=== PATIENT | female | born 1970 | race Caucasian/White ===

== ENCOUNTER → 2019-01-22 | Outpatient (CLI) | payer MEDICAID ==
--- NOTE | 2019-01-23 15:09 | MM ---
Reason for exam: screening (asymptomatic). Last mammogram was performed 2 years and 10 months ago. History: Patient had first child at age 39. Physical Findings: A clinical breast exam by your physician is recommended on an annual basis and results should be correlated with mammographic findings. MG 3D Screening Mammo W/Cad Bilateral CC and MLO view(s) were taken. Prior study comparison: March 16, 2016, bilateral MG 3d screening mammo w/cad. The breast tissue is heterogeneously dense. This may lower the sensitivity of mammography. No suspicious abnormality. No significant changes when compared with prior studies. ASSESSMENT: Negative, BI-RAD 1 RECOMMENDATION: Routine screening mammogram of both breasts in 1 year.
== END | disposition home or self-care (01) ==
LOC: RADMAMWWP 08:16
PROVIDERS: ATTEND Obstetrics & Gynecology
DX: Z12.31 Encounter for screening mammogram for malignant neoplasm of breast (principal)
CPT/HCPCS: 77063; 77067

== ENCOUNTER → 2020-09-18 | Outpatient (CLI) | payer MEDICAID | END | disposition home or self-care (01) | CPT/HCPCS: 36415; 80051; 82565; 82947; 84520; 85025; 86850; 86900; 86901; 87086; 93005 ==

== ENCOUNTER 2020-09-29 06:01 | Day surgery (SDC) | payer MEDICAID ==
[2020-09-28 08:40] VITALS: BMI 40.5
[~2020-09-29 06:01] MED LIST: DEXAMETHASONE SOD PHOSPHATE 4 MG/ML 1 ML VIAL IV ONE; LIDOCAINE 1% (10MG/ML) FOR IV START INTRADERMA PRN; ONDANSETRON 4 MG/2 ML VIAL IVP ONE; SCOPOLAMINE 1.5MG/72HR PATCH TRANSDERM ONE
[2020-09-29] MEDS: LACTATED RINGERS 1,000 ML IV SCH ×4 (06:49→21:35)
[2020-09-29] MEDS ORDERED: HYDROmorphone 0.5 MG/0.5 ML SYRINGE IVP PRN (07:00)
[2020-09-29] MEDS ORDERED: MIDAZOLAM 2 MG/2 ML VIAL IVP ONE (07:27)
[2020-09-29] MEDS ORDERED: fentaNYL (PF) 50 MCG/ML 2 ML AMP IVP ONE (07:27)
[2020-09-29] MEDS ORDERED: SUCCINYLCHOLINE CHLORIDE 100 MG/5 ML SYR IV ONE (07:39)
[2020-09-29] MEDS ORDERED: ROCURONIUM 10 MG/ML (5 ML VIAL) IV ONE (07:39)
[2020-09-29] MEDS ORDERED: SODIUM CHLORIDE 0.9% (PF) 10 ML VIAL ONE (07:39)
[2020-09-29] MEDS ORDERED: MIDAZOLAM 2 MG/2 ML VIAL ONE (07:39)
[2020-09-29] MEDS ORDERED: PROPOFOL 10 MG/ML 20 ML VIAL IV ONE (07:39)
[2020-09-29] MEDS ORDERED: HYDROmorphone (PF) 1 MG/ML ONE (07:39)
[2020-09-29] MEDS ORDERED: LIDOCAINE 1% INJ 10MG/ML (20 ML MDV) ONE (07:39)
[2020-09-29] MEDS ORDERED: ROPIVACAINE 5 MG/ML 30 ML VIAL ONE (07:39)
[2020-09-29] MEDS ORDERED: NEOSTIGMINE 1 MG/ML 10 ML VIAL ONE (07:39)
[2020-09-29] MEDS ORDERED: GLYCOPYRROLATE 0.2 MG/ML 2 ML VIAL ONE (07:39)
[2020-09-29] MEDS ORDERED: BUPIVACAINE (PF) 0.25% 30 ML VIAL SQ ONE ×2 (08:08→09:35)
--- NOTE | 2020-09-29 08:28 | P.ANPRN ---
Procedure Note - Anesthesia - Nerve Block Performed Bilateral Erector Spinae Single Time Out Performed: Yes ([id number]) Date of Procedure: 09/29/20 Procedure Start Time: : Procedure Stop Time: :32 Location of Patient: PreOp Indication: Acute Post-Operative Pain, Requested by Surgeon Specifically requested for management of pain by DrJohn: Addy Martínez Sedation Type: Sedate with meaningful contact maintained Preparation: Sterile Prep Position: Supine Catheter: None Needle Types: Pajunk Needle Gauge: 21 Ultrasound used to visualize needle placement: Yes Ultrasound used to observe medication spread: Yes Injectate: 0.5% Ropivacaine (see comment for volume) (15cc each side + NACL PF 5cc each side) Blood Aspirated: No Pain Paresthesia on Injection Noted: No Resistance on Injection: Normal Image Stored and Saved: Yes Events: Uneventful and Well Tolerated
[2020-09-29] MEDS ORDERED: LACTATED RINGERS 1,000 ML IV ONE (08:41)
[2020-09-29] MEDS ORDERED: ONDANSETRON 4 MG/2 ML VIAL IVP PRN (09:49)
[2020-09-29] MEDS ORDERED: METOCLOPRAMIDE 5 MG/ML 2 ML VIAL IVP PRN (09:49)
[2020-09-29] MEDS ORDERED: Acetaminophen-Codeine 300-30mg TAB PO PRN ×2 (09:49)
[2020-09-29] MEDS ORDERED: SIMETHICONE 80 MG CHEWABLE PO PRN (09:49)
[2020-09-29] MEDS ORDERED: diphenhydrAMINE 50 MG/ML 1 ML VIAL IVP PRN (09:49)
[2020-09-29] MEDS ORDERED: KETOROLAC 15 MG/ML 1 ML VIAL IVP PRN (09:49)
--- NOTE | 2020-09-29 10:04 | P.OP ---
Date of Procedure: 09/29/20 Preoperative Diagnosis: #1. Menometrorrhagia #2. Dysmenorrhea #3. Failed endometrial ablation Postoperative Diagnosis: Same Procedure(s) Performed: #1. Da Sudha robotically assisted vaginal hysterectomy with bilateral salpingectomy #2. Diagnostic cystoscopy Anesthesia: SWAPNA Surgeon: Addy Martínez Zigzag Stitcher #1: Marilynn Mchugh Estimated Blood Loss (ml): 50 IV fluids (ml): 1,500 Urine output (ml): 200 Pathology: other (Uterus and bilateral fallopian tubes) Condition: stable Disposition: PACU Operative Findings: Preoperative pelvic examination demonstrated a roughly 7-8 week midplane normal shaped uterus. Intraoperatively, these findings were concerned with the uterus that appeared to be likely adenomyotic. There was evidence of bilateral tubal occlusion with one Filshie clip remaining in place on the right side for the left Filshie clip had, had some time, released in a closed manner and was found peritonealized on the bladder. It was left in place rather than chance damaging the bladder. There was no other apparent pathology present in the pelvis. Following the procedure, the cystoscopic findings were of a normal bladder and specifically bladder dome with bilateral ureteral peristalsis noted. Description of Procedure: The patient was prepped and draped in usual fashion after general endotracheal anesthesia was administered by the anesthesiologist. A weighted speculum was placed and the interior of the cervix grasped with single-tooth tenaculum. The uterus was sounded to approximately 10 cm. Serial dilation was carried out to admit the are uterine manipulator with a medium cervical cup which was affixed to the cervix and uterus in standard fashion. A Berry catheter was then placed. Attention was then turned to the abdomen where a site was selected approximate 4 cm above the umbilicus in the midline where an 8 mm incision was made in the transverse plane allowing insertion of an 8 mm da Sudha optical port under direct visualization without difficulty. A pneumoperitoneum was then insufflated and Trendelenburg positioning utilized. A site was selected approximately 10-12 cm lateral and 4-5 cm inferior the optical port on the right side where another 8 mm incision was made in the transverse plane allowing insertion of an 8 mm da Sudha port under direct visualization. A matching port was placed in the left lower quadrant. The area between the left lower quadrant port and the optical port was bisected and a 10 mm incision made in the transverse plane approximately 4-57 m above the optical port allowing insertion of a 10 mm patient clerical assistant port without difficulty again under direct visualization. The robot was then docked to the patient and the left arm loaded with a [place] bipolar cautery forceps and the right arm loaded with a monopolar cautery scissors. I then attended to the console. The left fallopian tube was removed from the underlying ovary with cautery followed by monopolar cautery with the scissors. At the level of the uterus the utero-ovarian ligament was transected up and through the round ligament on the left side using [place] bipolar cautery forceps followed by the sharp scissors with cautery as well. The bladder peritoneum was developed across the cervix and midline and the underlying tissues dissected to some extent. The uterine vasculature was skeletonized and then cauterized using the [place] poor cautery forceps. Attention was then turned to the right side where similar operations were carried out again without difficulty. The bladder peritoneum was developed across to the pre-existing incision. The bladder. Was elevated and sharply incised down to the fascial layer. A Ray-Adan was introduced and utilized to sweep the bladder further distally and expose the vaginal cup clearly. The uterine vascular trocar the right side was then more thoroughly cauterized and then divided. The left side was reexamined and recauterized as well. The posterior vaginal cup was taken the obvious with the uterus anteverted and the vagina packed with a sponge allowing the vaginal cuff to be opened posteriorly. The cup was then followed around from the right side to the left side and slightly anteriorly. The uterus was then retroverted and the vaginal incision connected across the top and the right. With some manipulation, the fairly large uterus was delivered through the vagina. The monopolar cautery scissors were exchanged for a laparoscopic suturing device. The previously placed Ray- Adan had been removed and a stitch of 0 Stratafix suture was passed into the abdomen. The vaginal cuff was closed beginning at the right angle of the vagina with large bites through the entirety of the vaginal cuff. It was closed from right to left and then several stitches taken back the other direction to ensure complete closure. The remaining stitch was then cut and removed without difficulty. Thorough suction irrigation was then carried out and it appeared to be somewhat dry. Surgicel powder was then utilized to coat the surgical areas. I then returned to the patient and remove the Berry catheter allowing placement of a diagnostic cystoscope. The bladder was filled with sterile water and the dome examined and found to be undamaged from either the cystoscopic or laparoscopic aspect. Both ureteral orifices were then examined and found to be peristalsing. All instrumentation was then removed, the robot undocked, and the ports removed. The incisions were closed with interrupted subcuticular stitches of 4-0 Vicryl followed by half-inch Steri-Strips placed with Mastisol. The incisions were infused with a total of 10 mL of quarter percent Marcaine without epinephrine equally divided among the 4 ports. Estimated blood loss for the case was approximately 50 mL. There were no complications. All sponge, instrument, and needle counts were correct. The patient tolerated the procedure well and proceeded to the recovery room in stable condition.
[2020-09-29] MEDS: IBUPROFEN 600 MG TAB PO PRN (14:56)
[2020-09-29] MEDS: SENNOSIDES-DOCUSATE SODIUM 1 EACH TAB PO SCH (21:35)
[2020-09-30] MEDS: LACTATED RINGERS 1,000 ML IV SCH (05:36)
[2020-09-30 06:54] LABS: Basophils % (A) 0 %; Eosinophils % (A) 0 %; HCT 24.7 % (34.0-46.0); HGB 7.6 gm/dL (11.4-16.0); Hypochromasia Marked; Lymphocytes # (A) 2.4 k/uL (1.0-4.8); Lymphocytes % (A) 20 %; MCH 23.4 pg (25.0-35.0); MCHC 30.8 g/dL (31.0-37.0); Mean Platelet Volume 8.1; Microcytosis Slight; Monocytes # (A) 0.5 k/uL (0-1.0); Monocytes % (A) 4 %; Neutrophils # (A) 8.9 k/uL (1.3-7.7); Neutrophils % (A) 73 %; Platelet Count 354 k/uL (150-450); RBC 3.25 m/uL (3.80-5.40); RDW 15.7 % (11.5-15.5); WBC 12.1 k/uL (3.8-10.6)
[2020-09-30 08:35] VITALS: BP 146/75; PULSE 76; RESP 16; TEMP 98.2
[2020-09-30] MEDS: IBUPROFEN 600 MG TAB PO PRN (08:58)
[2020-09-30] MEDS: SENNOSIDES-DOCUSATE SODIUM 1 EACH TAB PO SCH (08:58)
--- NOTE | 2020-09-30 09:06 | P.DS ---
Providers Expected date of discharge: 09/30/20 Attending physician: Addy Martínez Primary care physician: Bang Cheney MD - Discharge Diagnosis(es) (1) Dysmenorrhea Current Visit: Yes Status: Acute (2) Menometrorrhagia Current Visit: Yes Status: Acute Hospital Course: The patient is a 50-year-old woman who has a fairly long-standing history of significant irregular and heavy bleeding, menometrorrhagia. She underwent endometrial ablation in 2013 for these diagnoses which has failed to improve the problem. She additionally failed several attempts with oral contraceptive pills and has now requested definitive therapy with hysterectomy. Her uterus is somewhat enlarged and there is minimal descensus. As a result, she was taken the operating room where she underwent da Sudha robotically-assisted vaginal hysterectomy with bilateral salpingectomy and diagnostic cystoscopy in uncomplicated fashion. Her postoperative course has been unremarkable with vital signs remaining stable and her temperature has been afebrile throughout. She is tolerating regular diet on the morning of postoperative day #1 and has been able to be up and ambulatory without difficulty. She is voiding without difficulty as well. As a result, she has been deemed stable for discharge on postoperative day #1 will be discharged home to follow-up in the office in 2 weeks for an incision check and 8 weeks routinely. Discharge instructions primarily included calling for any significantly increasing increasing vaginal bleeding, pain, incisional problems, GI concerns, fever, or anything else that concerned her. She was primarily though instructed to have nothing in vagina for at least 8 weeks time to include intercourse. She understood all of her instructions and agrees to follow up as noted above. Discharge medications included any home medications plus a prescription for Tylenol No. 3, 1-2 by mouth every 6 hours when necessary pain, #20 dispensed with no refills. Discharge hemoglobin and hematocrit were 7.6 and 24.7 respectively. The patient demonstrates no signs or symptoms of orthostasis or ongoing bleeding. Urine output has been excellent. Procedures: #1. Da Sudha robotically assisted vaginal hysterectomy with bilateral salpingectomy #2. Diagnostic cystoscopy Patient Condition at Discharge: Stable Plan - Discharge Summary Discharge Rx Participant: Yes New Discharge Prescriptions: No Action hydroCHLOROthiazide 25 mg PO DAILY Acetaminophen Tab [Tylenol] 325 mg PO DIRECTED PRN PRN Reason: Pain Discharge Medication List Acetaminophen Tab [Tylenol] 325 mg PO DIRECTED PRN 09/28/20 [History] hydroCHLOROthiazide 25 mg PO DAILY 09/28/20 [History] Follow up Appointment(s)/Referral(s): Addy Martínez MD [STAFF PHYSICIAN] - 2 Weeks Patient Instructions/Handouts: *Surgery [facility] - Scopalamine Patch Instructions Discharge Disposition: HOME SELF-CARE
[2020-09-30] MEDS ORDERED: ACETAMINOPHEN TAB 325 MG TAB PO PRN (09:50)
== END 2020-09-30 10:58 | disposition home or self-care (01) ==
LOC: OR 06:01 → 4FBP 09:45 → OR 09-30 10:58
PROVIDERS: ATTEND Obstetrics & Gynecology
DX: N92.1 Excessive and frequent menstruation with irregular cycle (principal); N94.6 Dysmenorrhea, unspecified; I10 Essential (primary) hypertension; Z79.899 Other long term (current) drug therapy
CPT/HCPCS: 58573; S2900; 84703; 85025; 86850; 86900; 86901; 88307

== ENCOUNTER → 2021-12-03 | Outpatient (CLI) | payer MEDICAID ==
[2021-12-03 11:16] LABS: Basophils # (A) 0.04 X 10*3/uL (0.00-0.10); Basophils % (A) 0.6 %; Eosinophils # (A) 0.21 X 10*3/uL (0.04-0.35); Eosinophils % (A) 3.1 %; HCT 40.4 % (37.2-46.3); Immature Grans, Automated 0.1 %; Lymphocytes # (A) 1.46 X 10*3/uL (0.90-5.00); Lymphocytes % (A) 21.8 %; MCH 29.9 pg (27.0-32.0); MCHC 32.2 g/dL (32.0-37.0); MCV 92.9 fL (80.0-97.0); Mean Platelet Volume 11.7 fL (9.5-12.2); Monocytes # (A) 0.43 X 10*3/uL (0.20-1.00); Monocytes % (A) 6.4 %; NRBC Per 100 WBC 0 /100 WBCS (0.0-0.0); Neutrophils # (A) 4.56 X 10*3/uL (1.80-7.70); Platelet Count 256 X 10*3/uL (140-440); RBC 4.35 X 10*6/uL (4.10-5.20); RDW 12.3 % (11.5-14.5); WBC 6.71 X 10*3/uL (4.50-10.00)
[2021-12-03 12:09] LABS: ALT 28 U/L (8-44); AST 25 U/L (13-35); Albumin 4.1 g/dL (3.8-4.9); Albumin/Globulin Ratio 1.28 (1.60-3.17); Alkaline Phosphatase 98 U/L (41-126); BUN/Creat Ratio 25.17 Ratio (12.00-20.00); Blood Urea Nitrogen 15.1 mg/dL (9.0-27.0); Calcium 9.3 mg/dL (8.7-10.3); Carbon Dioxide 26.2 mmol/L (20.0-27.5); Chloride 103 mmol/L (96-109); Globulin 3.2 g/dL (1.6-3.3); Glucose 98 mg/dL (70-110); Iron 94 ug/dL (50-170); LDL Cholesterol,Calculated 142.2 mg/dL (0.0-131.0); Potassium 4.4 mmol/L (3.5-5.5); Sodium 140 mmol/L (135-145); Total Protein 7.3 g/dL (6.2-8.2)
== END | disposition home or self-care (01) ==
LOC: LABWHC1 07:02
PROVIDERS: ATTEND Internal Medicine
DX: Z00.00 Encounter for general adult medical examination without abnormal findings (principal); D64.9 Anemia, unspecified
CPT/HCPCS: 36415; 80053; 80061; 82607; 82746; 83540; 84443; 85025

== ENCOUNTER → 2022-01-17 | Outpatient (CLI) | payer MEDICAID ==
--- NOTE | 2022-01-18 17:24 | MM ---
Reason for Exam: Screening (asymptomatic). Last mammogram was performed 2 year(s) and 11 month(s) ago. Patient History: Menarche at age 15. First Full-Term at age 39. Late child-bearing (after 30). Left ovary removed at age 50. Right ovary removed at age 50. Hysterectomy at age 50. Postmenopausal. Risk Values: Ana 5 year model risk: 1.3%. NCI Lifetime model risk: 12.3%. Prior Study Comparison: 03/16/2016 Bilateral Screening Mammogram, [facility]. 01/22/2019 Bilateral Screening Mammogram, [facility]. Tissue Density: There are scattered fibroglandular densities. Findings: Analyzed By CAD. Pattern appears stable. No suspicious groups of microcalcifications, spiculated or lobular masses, architectural distortion or other secondary signs of malignancy are mammographically apparent. Overall Assessment: Benign, BI-RAD 2 Management: Screening Mammogram of both breasts in 1 year. A negative mammogram report should not preclude additional follow up of suspicious palpable abnormalities. Patient should continue monthly self breast exam. A clinical breast exam by your physician is recommended on an annual basis and results should be correlated with mammographic findings. Electronically signed and approved by: Almas Soriano D.O. Radiologis
== END | disposition home or self-care (01) ==
LOC: RADMAMWWP 09:13
PROVIDERS: ATTEND Internal Medicine
DX: Z12.31 Encounter for screening mammogram for malignant neoplasm of breast (principal); Z78.0 Asymptomatic menopausal state; Z90.721 Acquired absence of ovaries, unilateral
CPT/HCPCS: 77063; 77067

== ENCOUNTER → 2022-06-10 | Outpatient (CLI) | payer MEDICAID ==
[2022-06-10 10:56] LABS: African American GFR (CKD) 123.2 (60.0-200.0); Anion Gap 9.9 mmol/L (10.00-18.00); Blood Urea Nitrogen 12.6 mg/dL (9.0-27.0); Calcium 9.4 mg/dL (8.7-10.3); Carbon Dioxide 26.1 mmol/L (20.0-27.5); Non-African American GFR(CKD) 106.3 (60.0-200.0); Potassium 4.5 mmol/L (3.5-5.5)
== END | disposition home or self-care (01) ==
LOC: LABWHC1 06:59
PROVIDERS: ATTEND Internal Medicine
DX: I10 Essential (primary) hypertension (principal)
CPT/HCPCS: 36415; 80048

== ENCOUNTER → 2022-10-19 | Outpatient (CLI) | payer MEDICAID ==
[2022-10-19 11:58] LABS: Basophils # (A) 0.04 X 10*3/uL (0.00-0.10); Basophils % (A) 0.5 %; Eosinophils # (A) 0.28 X 10*3/uL (0.04-0.35); Eosinophils % (A) 3.6 %; HCT 39.8 % (37.2-46.3); HGB 13.1 d/dL (12.0-15.0); Lymphocytes # (A) 1.64 X 10*3/uL (0.90-5.00); Lymphocytes % (A) 21.2 %; MCH 31.3 pg (27.0-32.0); MCHC 32.9 d/dL (32.0-37.0); MCV 95.2 FL (80.0-97.0); Mean Platelet Volume 11.3 FL (9.5-12.2); Monocytes # (A) 0.49 X 10*3/uL (0.20-1.00); Monocytes % (A) 6.3 %; NRBC Per 100 WBC 0 X 10*3/uL (0.00-0.01); Neutrophils # (A) 5.27 X 10*3/uL (1.80-7.70); Neutrophils % (A) 68.1 %; Platelet Count 268 X 10*3/uL (140-440); RBC 4.18 X 10*6/uL (4.10-5.20); RDW 12.2 % (11.5-14.5); WBC 7.74 X 10*3/uL (4.50-10.00)
[2022-10-19 12:26] LABS: ALT 30 U/L (8-44); AST 21 U/L (13-35); Albumin 4.3 d/dL (3.8-4.9); Albumin/Globulin Ratio 1.48 Ratio (1.60-3.17); Alkaline Phosphatase 96 U/L (41-126); Calcium 9.5 mg/dL (8.7-10.3); Carbon Dioxide 27.2 mmol/L (21.6-31.8); Chloride 102 mmol/L (96-109); Globulin 2.9 d/dL (1.6-3.3); Glucose 100 mg/dL (70-110); LDL Cholesterol,Calculated 141.3 mg/dL (0.0-131.0); Potassium 4.3 mmol/L (3.5-5.5); Sodium 138 mmol/L (135-145); Total Bilirubin 0.5 mg/dL (0.3-1.2); Total Protein 7.2 d/dL (6.2-8.2)
== END | disposition home or self-care (01) ==
LOC: LABWHC1 06:57
PROVIDERS: ATTEND Internal Medicine
DX: I10 Essential (primary) hypertension (principal); Z11.59 Encounter for screening for other viral diseases
CPT/HCPCS: 36415; 80053; 80061; 84443; 85025; 86803

== ENCOUNTER → 2023-02-10 | Outpatient (CLI) | payer MEDICAID ==
--- NOTE | 2023-02-10 08:51 | MM ---
Reason for Exam: Screening (asymptomatic). Last mammogram was performed 1 year(s) and 1 month(s) ago. Patient History: Menarche at age 15. First Full-Term at age 39. Late child-bearing (after 30). Left ovary removed at age 50. Right ovary removed at age 50. Hysterectomy at age 50. Postmenopausal. Risk Values: Ana 5 year model risk: 1.3%. NCI Lifetime model risk: 12.1%. Prior Study Comparison: 03/16/2016 Bilateral Screening Mammogram, [facility]. 01/22/2019 Bilateral Screening Mammogram, [facility]. 01/17/2022 Bilateral MG 3D screening mammo w/cad, [facility]. Tissue Density: There are scattered fibroglandular densities. Findings: Analyzed By CAD. There is no suspicious group of microcalcifications or new suspicious mass in either breast. Overall Assessment: Negative, BI-RAD 1 Management: Screening Mammogram of both breasts in 1 year. . Patient should continue monthly self-breast exams. A clinical breast exam by your physician is recommended on an annual basis. This exam should not preclude additional follow-up of suspicious palpable abnormalities. Note on Ana scores and lifetime risk: 1. A Ana score greater than 3% is considered moderate risk. If this is the case, consider specialist referral to assess eligibility for a risk reducing agent. 2. If overall lifetime risk for the development of breast cancer is 20% or higher, the patient may qualify for future screening with alternating mammogram and breast MRI. Electronically signed and approved by: Thiago Miranda M.D. Radiologis
== END | disposition home or self-care (01) ==
LOC: RADMAMWWP 06:46
PROVIDERS: ATTEND Internal Medicine
DX: Z12.31 Encounter for screening mammogram for malignant neoplasm of breast (principal); Z78.0 Asymptomatic menopausal state
CPT/HCPCS: 77063; 77067

== ENCOUNTER → 2023-05-11 | Outpatient (CLI) | payer MEDICAID ==
[2023-05-11 15:52] LABS: Basophils # (A) 0.04 X 10*3/uL (0.00-0.10); Basophils % (A) 0.5 %; Eosinophils # (A) 0.23 X 10*3/uL (0.04-0.35); Eosinophils % (A) 2.8 %; HCT 40.3 % (37.2-46.3); HGB 13.2 g/dL (12.0-15.0); Lymphocytes # (A) 1.79 X 10*3/uL (0.90-5.00); MCH 30.8 pg (27.0-32.0); MCHC 32.8 g/dL (32.0-37.0); MCV 94.2 FL (80.0-97.0); Mean Platelet Volume 11.9 FL (9.5-12.2); Monocytes # (A) 0.52 X 10*3/uL (0.20-1.00); Monocytes % (A) 6.4 %; NRBC Per 100 WBC 0 X 10*3/uL (0.00-0.01); Neutrophils # (A) 5.54 X 10*3/uL (1.80-7.70); Neutrophils % (A) 68.1 %; Platelet Count 307 X 10*3/uL (140-440); RBC 4.28 X 10*6/uL (4.10-5.20); RDW 12.6 % (11.5-14.5); WBC 8.14 X 10*3/uL (4.50-10.00)
[2023-05-11 16:53] LABS: ALT 39 U/L (8-44); AST 20 U/L (13-35); Albumin 4.3 g/dL (3.8-4.9); Alkaline Phosphatase 93 U/L (41-126); BUN/Creat Ratio 28.83 Ratio (12.00-20.00); Blood Urea Nitrogen 17.3 mg/dL (9.0-27.0); Calcium 9.4 mg/dL (8.7-10.3); Carbon Dioxide 27.4 mmol/L (21.6-31.8); Chloride 101 mmol/L (96-109); Chol/HDL Ratio 5.51 Ratio; Globulin 3.3 g/dL (1.6-3.3); Glucose 94 mg/dL (70-110); LDL Cholesterol,Calculated 142.6 mg/dL (0.0-131.0); Potassium 4.3 mmol/L (3.5-5.5); Sodium 138 mmol/L (135-145); Total Bilirubin 0.4 mg/dL (0.3-1.2); Total Protein 7.6 g/dL (6.2-8.2)
== END | disposition home or self-care (01) ==
LOC: LABWHC1 07:03
PROVIDERS: ATTEND Internal Medicine
DX: I10 Essential (primary) hypertension (principal)
CPT/HCPCS: 36415; 80053; 80061; 84443; 85025

== ENCOUNTER → 2024-05-16 | Outpatient (CLI) | payer MEDICAID ==
[2024-05-16 15:31] LABS: Basophils # (A) 0.03 X 10*3/uL (0.00-0.10); Basophils % (A) 0.4 %; Eosinophils # (A) 0.17 X 10*3/uL (0.04-0.35); Eosinophils % (A) 2.5 %; HCT 40.7 % (37.2-46.3); HGB 13.2 g/dL (12.0-15.0); Lymphocytes # (A) 1.67 X 10*3/uL (0.90-5.00); Lymphocytes % (A) 24.4 %; MCH 30.6 pg (27.0-32.0); MCHC 32.4 g/dL (32.0-37.0); MCV 94.4 FL (80.0-97.0); Mean Platelet Volume 11.8 FL (9.5-12.2); Monocytes # (A) 0.45 X 10*3/uL (0.20-1.00); Monocytes % (A) 6.6 %; NRBC Per 100 WBC 0 X 10*3/uL (0.00-0.01); Neutrophils % (A) 65.7 %; Platelet Count 270 X 10*3/uL (140-440); RBC 4.31 X 10*6/uL (4.10-5.20); RDW 12.5 % (11.5-14.5); WBC 6.85 X 10*3/uL (4.50-10.00)
[2024-05-16 15:42] LABS: % Iron Saturation 45.08 (12.00-45.00); ALT 36 U/L (8-44); AST 20 U/L (13-35); Albumin 4.2 g/dL (3.8-4.9); Albumin/Globulin Ratio 1.27 Ratio (1.60-3.17); Alkaline Phosphatase 86 U/L (41-126); Blood Urea Nitrogen 15.6 mg/dL (9.0-27.0); Calcium 9.3 mg/dL (8.7-10.3); Carbon Dioxide 27.3 mmol/L (21.6-31.8); Chloride 103 mmol/L (96-109); Chol/HDL Ratio 5.53 Ratio; Globulin 3.3 g/dL (1.6-3.3); Glucose 104 mg/dL (70-110); Iron 133 UG/DL (50-170); LDL Cholesterol,Calculated 154.8 mg/dL (0.0-131.0); Potassium 4.5 mmol/L (3.5-5.5); Sodium 139 mmol/L (135-145); Total Bilirubin 0.5 mg/dL (0.3-1.2); Total Iron Binding Capacity 295 UG/DL (228-460); Total Protein 7.5 g/dL (6.2-8.2); Uric Acid 5.7 mg/dL (2.9-7.7)
== END | disposition home or self-care (01) ==
LOC: LABWHC1 07:37
PROVIDERS: ATTEND Internal Medicine
DX: Z00.00 Encounter for general adult medical examination without abnormal findings (principal); M17.10 Unilateral primary osteoarthritis, unspecified knee; D64.9 Anemia, unspecified
CPT/HCPCS: 36415; 80053; 80061; 82607; 82728; 82746; 83540; 83550; 84443; 84550; 85025

== ENCOUNTER → 2024-05-16 | Outpatient (CLI) | payer MEDICAID ==
--- NOTE | 2024-05-16 07:45 | MM ---
Reason for Exam: Screening (asymptomatic). Last mammogram was performed 1 year(s) and 3 month(s) ago. Patient History: Menarche at age 15. First Full-Term at age 39. Late child-bearing (after 30). Left ovary removed at age 50. Right ovary removed at age 50. Hysterectomy at age 50. Postmenopausal. Risk Values: Ana 5 year model risk: 1.5%. NCI Lifetime model risk: 11.8%. Prior Study Comparison: 01/22/2019 Bilateral Screening Mammogram, [facility]. 01/17/2022 Bilateral MG 3D screening mammo w/cad, [facility]. 02/10/2023 Bilateral MG 3D screening mammo w/cad, [facility]. Tissue Density: There are scattered areas of fibroglandular density. Findings: Analyzed By CAD. Right breast: There is no suspicious group of microcalcifications or new suspicious mass. Left breast: There is no suspicious group of microcalcifications or new suspicious mass. Overall Assessment: Negative, BI-RAD 1 Management: Screening Mammogram of both breasts in [address] [facility] will attempt to contact patient to return for supplemental views and ultrasound if indicated. Patient should continue monthly self-breast exams. A clinical breast exam by your physician is recommended on an annual basis. This exam should not preclude additional follow-up of suspicious palpable abnormalities. Note on Ana scores and lifetime risk: 1. A Ana score greater than 3% is considered moderate risk. If this is the case, consider specialist referral to assess eligibility for a risk reducing agent. 2. If overall lifetime risk for the development of breast cancer is 20% or higher, the patient may qualify for future screening with alternating mammogram and breast MRI. [facility], , 05/16/2024 7:41 AM. Electronically signed and approved by: Freddie Nguyễn DO
== END | disposition home or self-care (01) ==
LOC: RADMAMWWP 07:07
PROVIDERS: ATTEND Internal Medicine
DX: Z12.31 Encounter for screening mammogram for malignant neoplasm of breast (principal); R92.323 Mammographic fibroglandular density, bilateral breasts; Z78.0 Asymptomatic menopausal state
CPT/HCPCS: 77063; 77067

== ENCOUNTER → 2024-09-10 | Outpatient (CLI) | payer MEDICAID | END | disposition home or self-care (01) | LOC: LABPAT 11:36 | PROVIDERS: ATTEND Orthopaedic Surgery | DX: Z01.812 Encounter for preprocedural laboratory examination (principal); M16.12 Unilateral primary osteoarthritis, left hip; Z22.322 Carrier or suspected carrier of Methicillin resistant Staphylococcus aureus | CPT/HCPCS: 87070 ==

== ENCOUNTER 2024-10-01 05:50 | Day surgery (SDC) | payer MEDICAID ==
--- NOTE | 2024-09-30 08:32 | P.HPOR ---
History of Present Illness H&P Date: 09/30/24 Chief Complaint: Left knee pain The patient is a 54-year-old female who presents with progressive left knee pain for the past several years. It has worsened after a recent slip and fall. She notes swelling and stiffness with any weightbearing activities. She has tried injections and oral steroids without much relief. She notes daily pain that limits her. Review of Systems Per HPI Past Medical History Past Medical History: Chest Pain / Angina, GERD/Reflux, Hypertension Additional Past Medical History / Comment(s): low back pain,anemia post hyst, gestational diabetes with one pregancy, History of Any Multi-Drug Resistant Organisms: None Reported Past Surgical History: Hysterectomy, Tubal Ligation Additional Past Anesthesia/Blood Transfusion Reaction / Comment(s): woke up during hysterectomy, Smoking Status: Never smoker - Past Family History Mother Family Medical History: Diabetes Mellitus, Hypertension Medications and Allergies Home Medications Medication Instructions Recorded Confirmed Type Acetaminophen Tab [Tylenol] 325 mg PO DIRECTED PRN 09/28/20 09/29/20 History hydroCHLOROthiazide 25 mg PO DAILY 09/28/20 09/29/20 History Allergies Allergy/AdvReac Type Severity Reaction Status Date / Time No Known Allergies Allergy Verified 09/25/24 09:39 Physical Examination - Knee left Appearance: effusion, varus alignment in stance Varus alignment in stance: 5 degrees Tenderness with palpation: anterior, medial Pain: throughout ROM Gait: limping ROM: extension: -10 degrees ROM: flexion: 60 degrees Crepitus with motion: Yes Strength: extension: 5/5 Strength: flexion: 5/5 Meniscal tests: medial meniscal tests: positive, medial joint line pain: positive Results The patient is a well-developed well-nourished female approximately 5 foot 4, 243 pounds of endomorphic habitus. HEENT exam is nonfocal, neck is supple. She has painless passive motion of her left hip. Straight leg raise is negative. She is tender about the medial joint line of the left knee. Collaterals are stable, Pramod's negative, June's elicits medial pain. Her distal neurovascular exam appears intact in the left lower extremity. - Diagnostic results Knee x-ray: image reviewed (Trays of the left knee obtained the office show severe medial compartment osteoarthrosis with [id number] changes.) Assessment and Plan Assessment: Left knee severe tricompartmental osteoarthrosis Obesity Plan: I talked to the patient at length regarding her condition along with treatment options. At this point she is quite symptomatic having pain and mechanical symptoms related to her left knee osteoarthrosis despite conservative measures. After a thorough discussion she opts to proceed with surgery. We will plan to proceed with a left total knee arthroplasty. Risks and benefits were discussed at length in layman's terms. We will institute DVT prophylaxis postoperatively.
[~2024-10-01 05:50] MED LIST changes: -DEXAMETHASONE SOD PHOSPHATE 4 MG/ML 1 ML VIAL IV ONE; -LIDOCAINE 1% (10MG/ML) FOR IV START INTRADERMA PRN; -ONDANSETRON 4 MG/2 ML VIAL IVP ONE; -SCOPOLAMINE 1.5MG/72HR PATCH TRANSDERM ONE; +TRANEXAMIC 1,000 MG/100ML-NACL 1,000 MG in SALINE 1 100ML.BAG IVPB PRN
[2024-10-01] MEDS: IV FLUID CONTINUATION 1,000 ML IV ONE (06:21)
[2024-10-01] MEDS: ONDANSETRON 4 MG/2 ML VIAL IVP ONE (06:42)
[2024-10-01] MEDS: ACETAMINOPHEN TAB 500 MG TAB PO PRN (06:42)
[2024-10-01] MEDS: MELOXICAM 7.5 MG TAB PO PRN (06:42)
[2024-10-01] MEDS: DEXAMETHASONE SOD PHOSPHATE 4 MG/ML 1 ML VIAL IV ONE (06:42)
[2024-10-01] MEDS: LACTATED RINGERS 1,000 ML IV SCH (06:43)
[2024-10-01] MEDS: MIDAZOLAM 2 MG/2 ML VIAL IV ONE (06:52)
[2024-10-01] MEDS ORDERED: DEXAMETHASONE SOD PHOSPHATE 4 MG/ML 1 ML VIAL ONE (07:25)
[2024-10-01] MEDS ORDERED: HYDROmorphone (PF) 1 MG/ML ONE (07:25)
[2024-10-01] MEDS ORDERED: NEOSTIGMINE 1 MG/ML 10 ML VIAL ONE (07:25)
[2024-10-01] MEDS ORDERED: TRANEXAMIC 1,000 MG/100ML-NACL PREMIX BAG ONE (07:25)
[2024-10-01] MEDS ORDERED: GLYCOPYRROLATE 0.2 MG/ML 2 ML VIAL ONE (07:25)
[2024-10-01] MEDS ORDERED: PROPOFOL 10 MG/ML 20 ML VIAL IV ONE (07:25)
[2024-10-01] MEDS ORDERED: KETAMINE HCL IN 0.9 % NACL 50 MG/5 ML SYRINGE ONE (07:25)
[2024-10-01] MEDS ORDERED: fentaNYL (PF) 50 MCG/ML 2 ML AMP ONE (07:25)
[2024-10-01] MEDS ORDERED: SUCCINYLCHOLINE CHLORIDE 200 MG/10 ML VIAL IV ONE (07:25)
[2024-10-01] MEDS ORDERED: ROPIVACAINE 5 MG/ML 30 ML VIAL ONE (07:25)
[2024-10-01] MEDS ORDERED: MIDAZOLAM 2 MG/2 ML VIAL ONE (07:25)
[2024-10-01] MEDS ORDERED: LIDOCAINE 1% INJ 10MG/ML (20 ML MDV) ONE (07:25)
[2024-10-01] MEDS ORDERED: ROCURONIUM 10 MG/ML (5 ML VIAL) IV ONE (07:25)
[2024-10-01 07:26] LABS: Glucose,Whole Blood 105 mg/dL (70-110)
--- NOTE | 2024-10-01 07:48 | P.ANPRN ---
Procedure Note - Anesthesia - Nerve Block Performed Left iPack Single Time Out Performed: Yes Date of Procedure: 10/01/24 Procedure Start Time: 06:52 Procedure Stop Time: 06:57 Location of Patient: PreOp Indication: Acute Post-Operative Pain, Analgesia, Requested by Surgeon Sedation Type: Sedate with meaningful contact maintained Preparation: Sterile Prep Position: Right Lateral Catheter: None Needle Types: Pajunk Needle Gauge: 21 Ultrasound used to visualize needle placement: Yes Ultrasound used to observe medication spread: Yes Injectate: 0.5% Ropivacaine (see comment for volume) ([id number]) Blood Aspirated: No Pain Paresthesia on Injection Noted: No Resistance on Injection: Normal Image Stored and Saved: Yes Events: Uneventful and Well Tolerated
--- NOTE | 2024-10-01 07:50 | P.ANPRN ---
Procedure Note - Anesthesia - Nerve Block Performed Left Adductor Canal Infusion Time Out Performed: Yes Date of Procedure: 10/01/24 Procedure Start Time: 06:57 Procedure Stop Time: 07:02 Location of Patient: PreOp Indication: Acute Post-Operative Pain, Analgesia, Requested by Surgeon Sedation Type: Sedate with meaningful contact maintained Preparation: Sterile Prep Position: Supine Catheter: Indwelling Needle Types: On-Q Ultrasound used to visualize needle placement: Yes Ultrasound used to observe medication spread: Yes Injectate: 2.0% Lidocaine (see comment for volume) ([id number]) Blood Aspirated: No Pain Paresthesia on Injection Noted: No Resistance on Injection: Normal Image Stored and Saved: Yes Events: Uneventful and Well Tolerated
[2024-10-01] MEDS: ceFAZolin 1,000 MG in SODIUM CHLORIDE 0.9% 1,000 ML IRRIGATION ONE (08:00)
[2024-10-01] MEDS ORDERED: hydrOXYzine HCL 25 MG TAB PO PRN (09:14)
[2024-10-01] MEDS ORDERED: HYDROmorphone 0.5 MG/0.5 ML SYRINGE IVP PRN (09:14)
[2024-10-01] MEDS ORDERED: NALOXONE 0.4 MG/ML 1 ML VIAL IV PRN (09:14)
[2024-10-01] MEDS: LACTATED RINGERS 1,000 ML IV ONE (09:14)
[2024-10-01] MEDS ORDERED: ONDANSETRON 4 MG/2 ML VIAL IVP PRN (09:14)
[2024-10-01] MEDS ORDERED: HYDROcodone/APAP 5-325MG 1 EACH TAB PO PRN (09:14)
[2024-10-01] MEDS ORDERED: MAGNESIUM HYDROXIDE 2,400 MG/30 ML CUP PO PRN (09:14)
--- NOTE | 2024-10-01 09:34 | P.OP ---
Date of Procedure: 10/01/24 Preoperative Diagnosis: Left knee severe tricompartmental osteoarthrosis Postoperative Diagnosis: Same Procedure(s) Performed: Left total knee arthroplastycementedposterior stabilized Implants: DePuy attune size 6 narrow cemented femoral component, size 5 cemented tibial component with a 14 x 50 mm stem extension, 10 mm articular surface, 32 mm cemented patellar component. This is a posterior stabilized implant. Anesthesia: [facility], [facility] Surgeon: Juan Daniel Obrien Milk Deliverer #1: Agustin Robles Estimated Blood Loss (ml): 50 Pathology: none sent Condition: stable Disposition: PACU Indications for Procedure: The patient is a 54-year-old female who presents with progressive left knee pain secondary to osteoarthrosis despite conservative measures. A discussion of the risks and benefits of operative intervention versus continued conservative measures was made with the patient. She opted to proceed with surgery. Operative risks include infection, neurovascular injury, development of blood clots, fracture, possible component loosening/failure, possible need for subsequent procedures was discussed. Informed consent was obtained. Operative Findings: As below Description of Procedure: The patient was brought to the operating room, and after induction of spinal anesthesia the left lower extremity was prepped and draped in a normal fashion. The tourniquet was inflated to 270 mm marker. A longitudinal incision extending 3 finger breaths above the superior pole of patella extending to the medial aspect the tibial tubercle was then made. The skin and subcutaneous tissues were divided sharply. Electrocautery was used for hemostasis. A medial parapatellar arthrotomy was performed. The medial soft tissues to include the superficial and deep portions of the medial collateral ligament were elevated subperiosteally. The patella was everted. A portion of the retropatellar fat pad was excised sharply. The anterior cruciate ligament was sacrificed. Blunt retractors were placed. A starting hole was made in the distal femur 1 cm anterior to the posterior cruciate ligament origin. An intramedullary femoral guide was then inserted planning on 5 valgus distal cut with 9 mm distal resection. The cutting block was pinned in place. The distal cut was then made. The posterior referencing sizing guide was utilized. I felt size 6 narrow was most appropriate. 3 of external rotation was built into the system and verified off the trans-epicondylar axis and the posterior condyles. The cutting block was pinned in place. The anterior, posterior, and chamfer cuts then made. Bone fragments were removed. The intercondylar guide was placed and the notch cut was made with a sagittal saw. The bone block was removed in one fragment. The trial component was then placed. There is good anterior to posterior and medial to lateral fit. The distal peg holes were drilled. The trial component was removed. Attention was then paid towards preparing the proximal tibia. An extra medullary guide was utilized in line with the tibial shaft and second metatarsal distally. I planned on 2 mm resection from the medial compartment. The cutting block was pinned in place. The proximal tibial cut was then made. The bone was removed in one fragment. The remnants of the medial and lateral menisci were excised at the capsular junction with electrocautery. The tibia sized most appropriately at size 5. The trial femoral and tibial components were placed along with a 10 mm articular surface. I was able to obtain full flexion and extension with internal and external rotation. After several flexion and extension cycles, the tibial rotation was marked with electrocautery line with the medial one third of the tibial tubercle. Attention was then paid towards preparing the patella. A patella reamer was utilized taking stem to 14 mm of bone stock. A good flush cut was made. The patella sized most appropriately 32 mm. The peg holes were drilled. The trial components placed. I had good patellofemoral tracking with no hands technique. The trial components were then removed. The tibia was prepared in the appropriate rotation with appropriate drill and keel punch planning on a 14 x 50 mm stem extension. The posterior osteophytes were removed with a curved osteotome. The flexion and extension gaps were checked and felt to be symmetric at 10 mm. A trial components were then removed. The bony surfaces were prepared with pulsatile lavage and dried. The tibial component was then cemented place was fully seated. Excess cement was removed. The femoral component cemented place and was fully seated. Excess cement was removed. The trial 10 mm articular surface was placed and the knee was put in full extension. The patella component was cemented place. After the cement had sufficiently hardened, the knee was again taken through a range of motion. Again I was able to obtain full flexion and extension with varus and valgus stress. The trial 10 mm articular surface was removed and the final one inserted. This was fully seated. Care was taken to avoid any soft tissue interposition. Pulsatile lavage was again utilized. The medial parapatellar arthrotomy was closed with #2 Ethibond suture. The tourniquet was deflated with approximately 60 minutes total tourniquet time. Final hemostasis was obtained with the cautery. There was minimal bleeding therefore a deep drain was not placed. The subcutaneous tissues were reapproximated with interrupted 2-0 Vicryl sutures. The skin was reapproximated with 3-0 subcuticular strata fix suture. Skin tape and adhesive was applied. A sterile dressing was applied. The patient was awoken from sedation and transferred to recovery room in good condition. Blood loss was estimated at 50 mL. No complications were incurred. Sponge and needle counts were correct at the end of the case. Agustin MORROW assisted during the major components of this case to include exposure, bone resection, implantation, and closure.
[2024-10-01] MEDS: droPERidol 2.5 MG/ML VIAL IVP STA (09:44)
[2024-10-01] MEDS: HYDROmorphone 1 MG/ML 1 ML SYRINGE IVP PRN (09:44)
[2024-10-01] MEDS: HYDROmorphone 0.5 MG/0.5 ML SYRINGE IVP PRN (09:51)
[2024-10-01] MEDS: ROPIVACAINE 1,100 MG, SODIUM CHLORIDE 0.9% 500 ML 330 ML, EMPTY PAIN BALL 1 EACH MISCELLANE PRN (10:01)
--- NOTE | 2024-10-01 10:03 | XR ---
EXAMINATION TYPE: XR knee limited LT DATE OF EXAM: 10/01/2024 9:49 AM COMPARISON: None CLINICAL INDICATION: Female, 54 years old with history of Evaluation for Postop abnormality and align ment; PHH, pain TECHNIQUE: XR knee limited LT 2 views submitted. FINDINGS: There is a lucency extending to the medial femoral condyle otherwise hardware is intact. S ubcutaneous gas compatible with recent surgery. IMPRESSION: Lucency along the medial distal femoral condyle. Unclear if this represents a fracture. C onsider CT imaging to rule out a prosthetic fracture. [facility], , 10/01/2024 10:01 AM
[2024-10-01] MEDS: HYDROcodone/APAP 7.5-325MG 1 EACH TAB PO PRN (13:21)
[2024-10-01 14:30] LABS: Basophils # (A) 0.04 10*3/uL (0.00-0.10); Basophils % (A) 0.3 %; Eosinophils # (A) 0.00 10*3/uL (0.04-0.35); Eosinophils % (A) 0.0 %; HCT 35.9 % (37.2-46.3); HGB 11.9 g/dL (12.0-15.0); Lymphocytes # (A) 0.42 10*3/uL (0.90-5.00); Lymphocytes % (A) 2.9 %; MCH 30.7 pg (27.0-32.0); MCHC 33.1 g/dL (32.0-37.0); MCV 92.5 fL (80.0-97.0); Monocytes # (A) 0.31 10*3/uL (0.20-1.00); Monocytes % (A) 2.1 %; Neutrophils # (A) 13.63 10*3/uL (1.80-7.70); Neutrophils % (A) 94.1 %; Platelet Count 333 10*3/uL (140-440); RBC 3.88 10*6/uL (4.10-5.20); RDW 12.1 % (11.5-14.5); WBC 14.48 10*3/uL (4.50-10.00)
[2024-10-01 14:50] LABS: African American GFR (CKD) >90 (>60 ml/min/1.73 sqM); Anion Gap 11 mmol/L; Blood Urea Nitrogen 18 mg/dL (7-17); Calcium 9.4 mg/dL (8.4-10.2); Carbon Dioxide 24 mmol/L (22-30); Chloride 99 mmol/L (98-107); Glucose 203 mg/dL (74-99); Magnesium 1.8 mg/dL (1.6-2.3); Non-African American GFR(CKD) >90 (>60 ml/min/1.73 sqM); Potassium 4.4 mmol/L (3.5-5.1); Sodium 134 mmol/L (137-145)
--- NOTE | 2024-10-01 15:28 | P.CONS ---
History of Present Illness - Reason for Consult Consult date: 10/01/24 Medical management while admitted s/p total left knee arthoplasty - History of Present Illness Subjective: Patient seen and examined at bedside. Saw patient after total left knee arthroplasty this morning. At this time patient complains of an upset stomach and nausea however denies abdominal pain. She also complains of left knee pain that is mild. Patient notes she has constipation at home chronically. She has not had a bowel movement today. Patient is able to urinate with no urinary symptoms. She denies fevers, chills, headache, chest pain, shortness of breath, abdominal pain. Pertinent positives and negatives as discussed above, a complete review of systems was performed and all other systems are negative. Vitals: Signs Reviewed Physical Exam: General: nontoxic, no distress, appears at stated age Derm: warm, dry, intact Head: atraumatic, normocephalic, symmetric Eyes: EOMI, anicteric sclera Mouth: no lip lesion, mucus membranes moist Cardiovascular: S1 S2 reg, no murmur, rubs, or gallops Lungs: CTA bilateral, no rhonchi, no rales, no accessory muscle use Abdominal: soft, non-tender to palpation, no appreciable organomegaly Extremities: no gross muscle atrophy, no edema, Left knee in bandages with ice pack Neuro: Alert, Oriented, CNII-XII grossly intact, gait normal Psych: well appearing, appropriate affect Data Received Today: Pertinent Labs: WBC 14.48, hemoglobin 11.9, corrected sodium 136, BUN 18, creatinine 0.43, magnesium 1.8 Imaging: Knee x-ray -lucency along the medial distal femoral condyle, unclear if this represents a fracture. Assessment and Plan: Hypertension -Blood pressures are stable -If blood pressure rises tomorrow will restart home lisinopril hydrochlorothiazide Constipation -Will continue to monitor Total left knee arthroplasty on 10/01 -Pain management per primary team DVT ppx: Xarelto 10 mg daily Code status: Full code Anticipated discharge place: Per primary team Anticipated discharge time: Per primary team Jordan Nieves DO PGY-1 IM Dictation was produced using [employer] dictation software. please excuse any gramm atical, word or spelling errors. I saw and evaluated the patient during the kraus and critical portions of this encounter, and discussed the case in detail with the resident author of this note, I agree with the Assessment and Plan, and my changes, if any, are highlighted in blue. Past Medical History Past Medical History: Chest Pain / Angina, GERD/Reflux, Hypertension Additional Past Medical History / Comment(s): low back pain,anemia post hyst, gestational diabetes with one pregancy, History of Any Multi-Drug Resistant Organisms: None Reported Past Surgical History: Hysterectomy, Tubal Ligation Additional Past Anesthesia/Blood Transfusion Reaction / Comm: woke up during hysterectomy, Past Psychological History: Anxiety, Depression Smoking Status: Never smoker Past Alcohol Use History: None Reported Past Drug Use History: None Reported - Past Family History Mother Family Medical History: Diabetes Mellitus, Hypertension Medications and Allergies Home Medications Medication Instructions Recorded Confirmed Type Acetaminophen Tab [Tylenol] 325 mg PO DIRECTED PRN 09/28/20 10/01/24 History Lisinopril-Hctz 10-12.5 mg 10/01/24 History [Zestoretic 10-12.5] Allergies Allergy/AdvReac Type Severity Reaction Status Date / Time No Known Allergies Allergy Verified 10/01/24 06:23 Physical Exam Osteopathic Statement: *. No significant issues noted on an osteopathic structural exam other than those noted in the History and Physical/Consult. Vitals: Vital Signs Temp Pulse Pulse Resp BP BP Pulse Ox 10/01/24 12:30 92 15 115/61 92 L 10/01/24 12:00 94 12 113/56 92 L 10/01/24 11:45 82 12 106/65 93 L 10/01/24 11:30 97 16 121/69 93 L 10/01/24 11:00 85 13 118/61 92 L 10/01/24 10:45 80 14 129/61 97 10/01/24 10:30 81 12 110/61 98 10/01/24 10:15 73 15 130/59 97 10/01/24 10:00 89 16 133/66 94 L 10/01/24 09:45 94 24 94 L 10/01/24 09:30 97.2 F L 98 14 124/101 98 10/01/24 07:27 88 16 144/74 100 10/01/24 07:12 84 16 143/78 100 10/01/24 07:07 84 16 131/81 100 10/01/24 07:02 89 16 137/66 100 10/01/24 06:57 85 16 147/61 100 10/01/24 06:50 98.0 F 89 16 141/89 98 Intake and Output 10/01/24 10/01/24 10/01/24 06:59 14:59 22:59 Intake Total 100 1651 Output Total 650 Balance 100 1001 Intake: IV 100 1651 Output: Urine 600 Estimated Blood Loss 50 Other: Weight 105.2 kg 105.2 kg Results CBC & Chem 7: 10/01/24 14:00 10/01/24 14:00 Labs: Abnormal Lab Results - Last 24 Hours (Table) 10/01/24 10/01/24 Range/Units 14:00 14:00 WBC 14.48 H (4.50-10.00) 10*3/uL RBC 3.88 L (4.10-5.20) 10*6/uL Hgb 11.9 L (12.0-15.0) g/dL Hct 35.9 L (37.2-46.3) % Immature Gran # 0.08 H (0.00-0.04) 10*3/uL Neutrophils # 13.63 H (1.80-7.70) 10*3/uL Lymphocytes # 0.42 L (0.90-5.00) 10*3/uL Eosinophils # 0.00 L (0.04-0.35) 10*3/uL Sodium 134 L (137-145) mmol/L BUN 18 H (7-17) mg/dL Creatinine 0.43 L (0.52-1.04) mg/dL Glucose 203 H (74-99) mg/dL
[2024-10-01] MEDS: SENNOSIDES-DOCUSATE SODIUM 1 EACH TAB PO SCH (19:50)
[2024-10-02 06:54] LABS: African American GFR (CKD) >90 (>60 ml/min/1.73 sqM); Anion Gap 9 mmol/L; Blood Urea Nitrogen 14 mg/dL (7-17); Calcium 9.6 mg/dL (8.4-10.2); Carbon Dioxide 26 mmol/L (22-30); Chloride 100 mmol/L (98-107); Glucose 120 mg/dL (74-99); Non-African American GFR(CKD) >90 (>60 ml/min/1.73 sqM); Potassium 4.3 mmol/L (3.5-5.1); Sodium 135 mmol/L (137-145)
[2024-10-02] MEDS: RIVAROXABAN 10 MG TAB PO SCH (08:25)
--- NOTE | 2024-10-02 10:20 | P.PN ---
Subjective Progress Note Date: 10/02/24 Subjective: Patient seen and examined at bedside. No acute events overnight. Pt notes she is feeling sore this morning and still feels pressure in her knee. Pt reports she has still not had a bowel movement and her last bowel movement was Monday (4 days ago) however she notes she has problems with constipation at home and coffee will help. She denies CP, SOB, nausea, abdominal pain. At this time, pt is medically optimized for discharge. Pertinent positives and negatives as discussed above, a complete review of systems was performed and all other systems are negative. Vitals: Signs Reviewed Physical Exam: General: nontoxic, no distress, appears at stated age Derm: warm, dry, intact Head: atraumatic, normocephalic, symmetric Eyes: EOMI, anicteric sclera Mouth: no lip lesion, mucus membranes moist Cardiovascular: S1 S2 reg, no murmur, rubs, or gallops Lungs: CTA bilateral, no rhonchi, no rales, no accessory muscle use Abdominal: soft, non-tender to palpation Extremities: no gross muscle atrophy, edema present Neuro: Alert, Oriented, CNII-XII grossly intact, gait normal Psych: well appearing, appropriate affect Data Received Today: Pertinent Labs: WBC 14.83 BUN 14, creatinine 0.42, sodium 145, potassium 4.3 Imaging: None Assessment and Plan: HTN - Has been stable - Will restart home meds on discharge, lisinopril 10, hydrochlorothiazide 12.5 Constipation - Continue senna - Continue to monitor Total Left Knee arthroplasty on 10/01 Leukocytosis, anticipated however, surgery Anemia, anticipated outcome of surgery - Pain management per primary team DVT ppx: Xeralto Code status: Full code Patient is medically optimized for discharge. Anticipated discharge place: Per primary team Anticipated discharge time: Per primary team Jordan Nieves DO PGY-1 IM Dictation was produced using flux - [employer] dictation software. please excuse any grammatical, word or spelling errors. I have seen and evaluated the patient today. Discussed with the resident and agree with the residents finding and plan as documented in the resident's note. Changes highlighted in blue font. Objective - Vital Signs Vital signs: Vital Signs Temp 98.2 F 10/02/24 07:13 Pulse 75 10/02/24 07:13 Resp 17 10/02/24 07:13 BP 132/76 10/02/24 07:13 Pulse Ox 98 10/02/24 07:13 FiO2 Intake & Output 10/01/24 10/02/24 10/02/24 18:59 06:59 18:59 Intake Total 2181 Output Total 650 Balance 1531 Weight 105.2 kg Intake: IV 1651 Intake, IV Titration 50 Amount ceFAZolin 2 gm In Sodium 50 Chloride 0.9% 50 ml @ 100 mls/hr IVPB Q8H [facility] Rx#: [id number] Oral 480 Output: Urine 600 Estimated Blood Loss 50 Other: Voiding Method Toilet # Voids 1 3 1 - Labs CBC & Chem 7: 10/02/24 05:43 10/02/24 05:43 Labs: Abnormal Lab Results - Last 24 Hours (Table) 10/01/24 10/01/24 10/02/24 Range/Units 14:00 14:00 05:43 WBC 14.48 H (4.50-10.00) 10*3/uL RBC 3.88 L (4.10-5.20) 10*6/uL Hgb 11.9 L (12.0-15.0) g/dL Hct 35.9 L (37.2-46.3) % Immature Gran # 0.08 H (0.00-0.04) 10*3/uL Neutrophils # 13.63 H (1.80-7.70) 10*3/uL Lymphocytes # 0.42 L (0.90-5.00) 10*3/uL Eosinophils # 0.00 L (0.04-0.35) 10*3/uL Sodium 134 L 135 L (137-145) mmol/L BUN 18 H (7-17) mg/dL Creatinine 0.43 L 0.42 L (0.52-1.04) mg/dL Glucose 203 H 120 H (74-99) mg/dL
[2024-10-02 10:41] LABS: Basophils # (A) 0.02 X 10*3/uL (0.00-0.10); Basophils % (A) 0.1 %; Eosinophils # (A) 0.01 X 10*3/uL (0.04-0.35); Eosinophils % (A) 0.1 %; HCT 34.7 % (37.2-46.3); HGB 11.0 g/dL (12.0-15.0); Immature Grans, Automated 0.40 %; Lymphocytes # (A) 1.95 X 10*3/uL (0.90-5.00); Lymphocytes % (A) 13.1 %; MCH 29.9 pg (27.0-32.0); MCHC 31.7 g/dL (32.0-37.0); MCV 94.3 FL (80.0-97.0); Monocytes # (A) 1.17 X 10*3/uL (0.20-1.00); Monocytes % (A) 7.9 %; NRBC Per 100 WBC 0 X 10*3/uL (0.00-0.01); Neutrophils # (A) 11.62 X 10*3/uL (1.80-7.70); Neutrophils % (A) 78.4 %; Platelet Count 307 X 10*3/uL (140-440); RBC 3.68 X 10*6/uL (4.10-5.20); RDW 12.5 % (11.5-14.5); WBC 14.83 X 10*3/uL (4.50-10.00)
--- NOTE | 2024-10-02 12:01 | P.DS ---
Providers Date of admission: 10/01/2024 Expected date of discharge: 10/02/24 Attending physician: Juan Daniel Obrien Consults: 10/01/24 09:14 Consult Physician Routine Consulting Provider: Cal Carlisle Consult Reason/Comments: medical management s/p left total knee arthroplasty Do you want consulting provider notified?: Yes Primary care physician: Bang Cheney Hospital Course: Date of admission: 10/01/2024 Date of discharge: 10/02/2024 Admission diagnosis: Left knee osteoarthritis Discharge diagnosis: Same Attending physician: Dr. Obrien Surgical procedures: Left total knee arthroplasty Brief history: Patient is a 54-year-old female with a history of progressive primary left knee osteoarthritis. At this point patient has failed conservative treatment measures and has opted to proceed with a elective left total knee arthroplasty. Hospital course: Details of patient's surgery can be found in operative report. Patient tolerated the procedure well and was subsequently transported to orthopedic floor. Patient's orthopeidc and medical care was provided daily. Patient had daily laboratory tests performed for evaluation of overall blood counts. Patient had daily physical therapy to include strengthening range of motion as well as education with walker ambulation. Patient was treated with Xarelto for their postoperative DVT prophylaxis during their inpatient stay. Patient was noted to have a relatively uneventful postoperative course. Patient reported satisfactory pain control with oral pain medications by postoperative day 1. Patient showed satisfactory progress with physical therapy. Patient moved steadily through the program and had no difficulty meeting the goals by postoperative day 1. Given patient's otherwise satisfactory course and having met physical therapy goals, plan is to discharge patient home with health services on postoperative day 1. Discharge condition/disposition: Patient will be discharged home with health services in stable condition. Discharge medications: Instructions are given on resumption of patient's normal daily medications per primary care recommendation, in addition patient will be prescribed Lysite; senna; Eliquis 2.5 mg twice daily x 2 weeks. Discharge instructions: 1. Wound care and infection precautions, keep incision dry and covered while showering, no lotions, creams, moisturizers. No soaking, tubs, pools, hottubs. Do not scrub over the incision. 2. Weight-bear as tolerated with walker / cane until follow-up. 3. Ice and elevate when necessary. Do not exceed 20 minutes per hour with ice pack. 4. Utilize compression sleeve until seen at first follow up appointment. 5. Visiting nursing care. 6. Home physical therapy including home CPM. 7. Pain meds and anticoagulants per prescription. 8. Pain medication has potential to cause constipation. Increase oral fluid and fiber intake. Contact primary care provider if you have not had a bowel movement within 48 hours after discharge 9. No anti-inflammatory medication until discussed at first post operative visit, this including Motrin, Aleve, Mobic, Diclofenac. 10. Follow up in office at 2 weeks postop with Bradley Bar PA-C / Agustin Robles PA-C 11. Follow up with your primary care doctor 7-10 days after discharge. 12. Contact [facility] with any questions, . Assessment: Left knee osteoarthritis Procedures: Left total knee arthroplasty Patient Condition at Discharge: Good Plan - Discharge Summary Discharge Rx Participant: No New Discharge Prescriptions: New HYDROcodone/APAP 7.5-325MG [Lysite 7.5] 1 - 2 each PO Q6HR PRN #32 tab PRN Reason: Pain Apixaban [Eliquis] 2.5 mg PO BID #60 tab Sennosides/Docusate Sodium [Senna Plus 8.6-50 mg Softgel] 1 each PO DAILY #20 capsule Continue Lisinopril-Hctz 10-12.5 mg [Zestoretic 10-12.5] No Action Acetaminophen Tab [Tylenol] 325 mg PO DIRECTED PRN PRN Reason: Pain Discharge Medication List Acetaminophen Tab [Tylenol] 325 mg PO DIRECTED PRN 09/28/20 [History] Lisinopril-Hctz 10-12.5 mg [Zestoretic 10-12.5] 10/01/24 [History] Apixaban [Eliquis] 2.5 mg PO BID #60 tab 10/02/24 [Rx] HYDROcodone/APAP 7.5-325MG [Lysite 7.5] 1 - 2 each PO Q6HR PRN #32 tab 10/02/24 [Rx] Sennosides/Docusate Sodium [Senna Plus 8.6-50 mg Softgel] 1 each PO DAILY #20 capsule 10/02/24 [Rx] Follow up Appointment(s)/Referral(s): Agustin Robles, MANDO [PHYSICIAN QUALITATIVE FIELD PROJECT MANAGER] - 2 Weeks [facility] [NON-STAFF] - As Needed (walker) Patient Instructions/Handouts: Knee Replacement (GEN) Activity/Diet/Wound Care/Special Instructions: Orthopedic Discharge Instructions: 1. Wound care and infection precautions, keep incision dry and covered while showering, no lotions, creams, moisturizers. No soaking, pools, hot tubs. Do not scrub over incision. 2. Weight-bear as tolerated with walker / cane until follow-up. 3. Ice and elevate when necessary. Do not exceed 20 minutes per hour with ice pack. 4. Utilize compression sleeve until seen at first follow up appointment. 5. Pain meds and anticoagulants per prescription. 6. Pain medication has potential to cause constipation. Increase oral fluid and fiber intake. Contact primary care provider if you have not had a bowel movement within 48 hours after discharge. 7. No anti-inflammatory medication until discussed at first post operative visit, this including Motrin, Aleve, Mobic, Diclofenac. 8. Follow up in office at 2 weeks postop with Bradley Bar PA-C / Agustin Robles PA-C 9. Follow up with your primary care doctor 7-10 days after discharge. 10. Contact [facility] with any questions, . Keep incision clean, dry, intact. While showering, cover fusion tape with Saran wrap. Keep fusion tape on until follow-up appointment in office in 2 weeks. Discharge Disposition: HOME WITH HOME HEALTH SERVICES
--- NOTE | 2024-10-02 12:04 | P.PN ---
Subjective Progress Note Date: 10/02/24 Principal diagnosis: Left knee osteoarthritis Patient was seen at bedside this morning lying in semirecumbent position in bed with dressing present over left lower extremity. Patient states she is in pain however oral medication helping control it. Patient says she did do therapy this morning and went well. She says she does need a walker for home. She says she has urinated since surgery yesterday without issue. Denies any other issues at this time. Objective - Vital Signs Vital signs: Vital Signs Temp 98.2 F 10/02/24 07:13 Pulse 75 10/02/24 07:13 Resp 17 10/02/24 07:13 BP 132/76 10/02/24 07:13 Pulse Ox 98 10/02/24 07:13 FiO2 Intake & Output 10/01/24 10/02/24 10/02/24 18:59 06:59 18:59 Intake Total 2181 Output Total 650 Balance 1531 Weight 105.2 kg Intake: IV 1651 Intake, IV Titration 50 Amount ceFAZolin 2 gm In Sodium 50 Chloride 0.9% 50 ml @ 100 mls/hr IVPB Q8H [facility] Rx#: [id number] Oral 480 Output: Urine 600 Estimated Blood Loss 50 Other: Voiding Method Toilet # Voids 1 3 1 - Exam Left knee: Incision is clean, dry, and intact. The exofin fusion tape is in good condition. There is minimal soft tissue swelling and ecchymosis surrounding the medial and lateral aspects of the incision. Calf is soft, no tenderness with palpation. Plantar flexion, dorsiflexion, EHL, FHL are intact. Sensory exam to light touch throughout the extremity is intact, dorsal pedis pulses 2+. - Labs CBC & Chem 7: 10/02/24 05:43 10/02/24 05:43 Labs: Abnormal Lab Results - Last 24 Hours (Table) 10/01/24 10/01/24 10/02/24 Range/Units 14:00 14:00 05:43 WBC 14.48 H 14.83 H (4.50-10.00) 10*3/uL RBC 3.88 L 3.68 L (4.10-5.20) 10*6/uL Hgb 11.9 L 11.0 L (12.0-15.0) g/dL Hct 35.9 L 34.7 L (37.2-46.3) % MCHC 31.7 L (32.0-37.0) g/dL Immature Gran # 0.08 H 0.06 H (0.00-0.04) 10*3/uL Neutrophils # 13.63 H 11.62 H (1.80-7.70) 10*3/uL Lymphocytes # 0.42 L (0.90-5.00) 10*3/uL Monocytes # 1.17 H (0.20-1.00) X 10*3/uL Eosinophils # 0.00 L 0.01 L (0.04-0.35) 10*3/uL Sodium 134 L (137-145) mmol/L BUN 18 H (7-17) mg/dL Creatinine 0.43 L (0.52-1.04) mg/dL Glucose 203 H (74-99) mg/dL 10/02/24 Range/Units 05:43 WBC (4.50-10.00) 10*3/uL RBC (4.10-5.20) 10*6/uL Hgb (12.0-15.0) g/dL Hct (37.2-46.3) % MCHC (32.0-37.0) g/dL Immature Gran # (0.00-0.04) 10*3/uL Neutrophils # (1.80-7.70) 10*3/uL Lymphocytes # (0.90-5.00) 10*3/uL Monocytes # (0.20-1.00) X 10*3/uL Eosinophils # (0.04-0.35) 10*3/uL Sodium 135 L (137-145) mmol/L BUN (7-17) mg/dL Creatinine 0.42 L (0.52-1.04) mg/dL Glucose 120 H (74-99) mg/dL Assessment and Plan Assessment: Left knee osteoarthritis -Postop day 1 status post left total knee arthroplasty Plan: 1. Left knee osteoarthritis -left total knee arthroplasty performed yesterday, 10/01/2024. Patient stable bedside this morning. Prescription for walker signed. Pain meds as needed. PT/OT recommendations. Discharge home today with health services. 2. Appreciate medical management 3. Pain management -[place] 4. GI prophylaxis -senna 5. PT/OT -weightbearing as tolerated walker 6. Encourage incentive spirometer use 7. DVT prophylaxis -Xarelto in hospital. Going home with Eliquis 2.5 mg twice daily x 2 weeks 8. Discharge planning -home today with health services. Time with Patient: Less than 30
--- NOTE | 2024-10-02 14:49 | P.PN ---
Progress Note - Text Progress Note Date: 10/02/24 Postoperative day # 1 status post total knee arthroplasty, and adductor canal catheter placed for postoperative analgesia, currently at ropivacaine 0.2% 8 mL per hour and continuous infusion, visual analogue scale is 3/10, patient using oral pain medication for breakthrough pain. Assessment and plan= Acute postoperative pain, adductor canal catheter for pain control, pain is well controlled we'll continue the same management.
[2024-10-02 16:25] VITALS: BP 134/81; PULSE 98; RESP 18; TEMP 97.9
== END 2024-10-02 16:57 | disposition home health service (06) ==
LOC: OR 05:50 → 4SSUR 09:25 → OR 10-02 16:57
PROVIDERS: ATTEND Orthopaedic Surgery
DX: M17.12 Unilateral primary osteoarthritis, left knee (principal); E66.9 Obesity, unspecified; G89.18 Other acute postprocedural pain; I10 Essential (primary) hypertension; K59.00 Constipation, unspecified; Z79.01 Long term (current) use of anticoagulants; Z90.710 Acquired absence of both cervix and uterus; Z96.652 Presence of left artificial knee joint
CPT/HCPCS: 97161; 64448; 64473; 80048 ×2; 83735; 85025 ×2; 73560; 27447; C1713 ×2; C1776; C1751; J2250; J1100; J0690 ×2; J2405; J1171 ×2; J2795; J1790